=== PATIENT | female | born 1950 | race Caucasian/White ===

== ENCOUNTER 2017-12-17 19:32 | Emergency (ER) | payer MEDICARE, BC ==
[2017-12-17 20:05] VITALS: BP 150/92
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
== END 2017-12-17 20:36 | disposition home or self-care (01) ==
LOC: JP.ED 19:32
DX: S80.862A Insect bite (nonvenomous), left lower leg, initial encounter (principal); Z88.6 Allergy status to analgesic agent; Z88.5 Allergy status to narcotic agent; Z79.82 Long term (current) use of aspirin; Z79.899 Other long term (current) drug therapy; W57.XXXA Bitten or stung by nonvenomous insect and other nonvenomous arthropods, initial encounter
CPT/HCPCS: 99282

== ENCOUNTER 2018-01-03 06:26 | Day surgery (SDC) | payer MEDICARE, BC ==
[2018-01-03] MEDS ORDERED: Sodium Chloride 0.9% 1,000 ML IV SCH (06:30)
[2018-01-03] MEDS ORDERED: Sodium Tetradecyl Sulfate 1% 20 MG/2 ML SDV ONE (06:46)
[2018-01-03] MEDS ORDERED: Lidocaine 1% with EPINEPHrine 1:100,000 50 ML MDV ONE (06:47)
[2018-01-03] MEDS ORDERED: Sodium Chloride 0.9% 10 ML ONE (06:47)
[2018-01-03] MEDS ORDERED: Propofol 200 MG/20 ML SDV ONE ×2 (07:25→08:02)
[2018-01-03] MEDS ORDERED: Midazolam 1 MG/ML 2 ML SDV ONE (07:25)
[2018-01-03] MEDS ORDERED: fentaNYL 100 MCG/2 ML SDV ONE (07:25)
[2018-01-03] MEDS: Lidocaine 1% w/EPINEPHrine 50 ML, Sodium Bicarbonate 5 MEQ in Sodium Chloride 0.9% 950 ML INJECT SCH ×2 (08:00→08:30)
[2018-01-03] MEDS ORDERED: Ondansetron 4 MG/2 ML SDV ONE (08:27)
[2018-01-03 09:55] VITALS: BP 150/77
--- NOTE | 2018-01-03 11:28 | OR ---
DATE OF PROCEDURE: 01/03/2018 PROCEDURES: 1. Radiofrequency ablation of left greater saphenous vein. 2. Radiofrequency ablation of right greater saphenous vein. 3. Sclerotherapy, left leg, multiple. 4. Sclerotherapy, right leg, multiple. 5. Compression wrapping, left leg, 20 mmHg gradient pressure ([id number]). 6. Compression wrapping, right leg, 20 mm gradient ([id number]). COMPLICATIONS: None. LONG WINDER TENDER: None. PREOPERATIVE DIAGNOSIS: Venous insufficiency with inflammation and pain. POSTOPERATIVE DIAGNOSIS: Venous insufficiency with inflammation and pain. RISKS: Risks, benefits, alternatives, and limitations including, but not limited to infection, bleeding, and DVT formation were explained to the patient, who wished to proceed. PROCEDURE IN DETAIL: The patient was placed in supine position. The left GSV was accessed at the level of the ankle. This was accessed using a 21-gauge needle, exchanged for a 35,000th wire and a 7-Portuguese sheath, anesthetized by lidocaine 1%. The RFA probe was then advanced to 3 cm from the saphenofemoral junction. Tumescent fluid was injected in a 1-cm jacket around this and verified a second and a third time. Direct even pressure was held as the probe was deployed x2 proximally and distally, and x1 in all other segments. The sheath and device were then removed and direct pressure was held for 10 minutes and Dermabond was applied. The right leg was then performed in the same manner, same fashion, same technique, in the same sequence, and using the same equipment. This was also verified a second and a third time. Sclerotherapy was then performed on left and right legs using 0.33% sodium tetradecyl. This was always drawn back to ensure intravascular injection only and no more than 2 mL was injected in one location, 6 on the left and 9 on the right. Two-layer two-stage compression wrapping was then performed on the [id number]-yt-esivqrpm gradient with 20 mmHg pressure in a ojjrgk-mi-kiypa fashion x2. The patient tolerated the procedure well. Tez Rivers MD /[id number]
== END 2018-01-03 10:10 | disposition home or self-care (01) ==
LOC: JP.SDS 06:26
PROVIDERS: ATTEND Surgery
DX: I87.2 Venous insufficiency (chronic) (peripheral) (principal); I83.813 Varicose veins of bilateral lower extremities with pain; I10 Essential (primary) hypertension; Z88.5 Allergy status to narcotic agent; Z88.6 Allergy status to analgesic agent
CPT/HCPCS: 36471; 36475; J1642; J2250; J2405; J2704; J3010; J7030; J7050; J3490

== ENCOUNTER 2019-02-23 10:19 | Emergency (ER) | payer BC, MEDICARE ==
[2019-02-23 10:49] VITALS: BP 154/72; PULSE 100
[2019-02-23] MEDS ORDERED: methylPREDNISolone Sodium Succinate 125 MG/2 ML SDV IM ONE (11:06)
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
== END 2019-02-23 11:20 | disposition home or self-care (01) ==
LOC: JP.ED 10:19
DX: S00.86XA Insect bite (nonvenomous) of other part of head, initial encounter (principal); I10 Essential (primary) hypertension; E03.9 Hypothyroidism, unspecified; Z86.718 Personal history of other venous thrombosis and embolism; Z79.01 Long term (current) use of anticoagulants; Z88.5 Allergy status to narcotic agent; Z88.6 Allergy status to analgesic agent; Z79.82 Long term (current) use of aspirin; Z79.890 Hormone replacement therapy; Z79.899 Other long term (current) drug therapy; W57.XXXA Bitten or stung by nonvenomous insect and other nonvenomous arthropods, initial encounter
CPT/HCPCS: 96372; 99282; J2930

== ENCOUNTER 2021-05-20 07:27 | Day surgery (SDC) | payer MEDICARE ==
[~2021-05-20 07:27] MED LIST: Sodium Chloride 0.9% 0 ML ONE
[2021-05-20] MEDS ORDERED: Propofol 200 MG/20 ML SDV ONE (07:30)
[2021-05-20] MEDS ORDERED: Midazolam 1 MG/ML 2 ML SDV ONE (07:30)
[2021-05-20] MEDS ORDERED: fentaNYL 100 MCG/2 ML SDV ONE (07:30)
[2021-05-20] MEDS: Sodium Chloride 0.9% 1,000 ML IV SCH (08:11)
[2021-05-20] MEDS: Lidocaine 1% with EPINEPHrine 1:100,000 50 ML MDV ONE (10:35)
[2021-05-20] MEDS: Lidocaine 1% w/EPINEPHrine 50 ML, Sodium Bicarbonate 5 MEQ in Sodium Chloride 0.9% 950 ML INJECT SCH (10:38)
[2021-05-20 11:34] VITALS: BP 133/92; PULSE 72
--- NOTE | 2021-05-22 10:22 | OR ---
DATE OF PROCEDURE: 05/20/2021 SURGEON: Tez Rivers MD PROCEDURE PERFORMED: Radiofrequency ablation of left greater saphenous vein. COMPLICATIONS: None. TRIM AND BURR OPERATOR: None. ANESTHESIA: MAC. RISKS: Risks, benefits, alternatives, and limitations including, but not limited to infection, bleeding, DVT formation, and other risks not listed here were explained to the patient. They wished to proceed. PROCEDURE IN DETAIL: The patient was placed in the supine position. Left GSV was accessed at approximately level of the ankle. This was accessed using a 21-gauge needle, then exchanged for a 35,000th wire. This was anesthetized with 1% lidocaine. The 7-Arabic sheath was introduced. RFA probe was then introduced and advanced to greater than 5 cm into the saphenofemoral junction. Tumescent fluid was injected in a 1 cm jacket around this, verified a second and third time. Direct even pressure was held. Probe was deployed x2 proximally and distally and x1 in all other segments. The sheath and device were then removed. Direct pressure was held for 10 minutes.. Dermabond was applied. The patient tolerated the procedure well. Tez Rivers MD /[id number]
== END 2021-05-20 11:35 | disposition home or self-care (01) ==
LOC: JP.SDS 07:27
PROVIDERS: ATTEND Surgery
DX: I87.2 Venous insufficiency (chronic) (peripheral) (principal); I10 Essential (primary) hypertension; E03.9 Hypothyroidism, unspecified; Z88.5 Allergy status to narcotic agent
CPT/HCPCS: 36475; J1642; J2250; J2704; J3010; J7030; J3490

== ENCOUNTER 2022-01-19 08:36 | Emergency (ER) | payer MEDICARE ==
[2022-01-19 08:47] VITALS: BP 167/86; PULSE 73
[2022-01-19 10:07] LABS: CORONAVIRUS COVID-19 NAA POSITIVE (NEGATIVE)
== END 2022-01-19 10:23 | disposition home or self-care (01) ==
LOC: JP.ED 08:36
DX: U07.1 COVID-19 (principal); I10 Essential (primary) hypertension; E03.9 Hypothyroidism, unspecified; Z88.5 Allergy status to narcotic agent; Z88.8 Allergy status to other drugs, medicaments and biological substances; Z79.82 Long term (current) use of aspirin; Z79.899 Other long term (current) drug therapy
CPT/HCPCS: 0241U; 99283

== ENCOUNTER 2023-01-20 14:48 | Emergency (ER) | payer OTHER, MEDICARE ==
[2023-01-20] MEDS ORDERED: Bacitracin Oint 1 GM U/D Packet TOP ONE (15:39)
[2023-01-20] MEDS ORDERED: Lidocaine 1% 5 ML VIAL INJECT ONE (15:39)
[2023-01-20 16:46] VITALS: BP 170/82; PULSE 94
== END 2023-01-20 16:22 | disposition home or self-care (01) ==
LOC: JP.ED 14:48
DX: S01.81XA Laceration without foreign body of other part of head, initial encounter (principal); E03.9 Hypothyroidism, unspecified; Z88.5 Allergy status to narcotic agent; Z88.8 Allergy status to other drugs, medicaments and biological substances; Z79.82 Long term (current) use of aspirin; Z79.899 Other long term (current) drug therapy; Z79.01 Long term (current) use of anticoagulants; Z86.718 Personal history of other venous thrombosis and embolism; W22.8XXA Striking against or struck by other objects, initial encounter; Y92.009 Unspecified place in unspecified non-institutional (private) residence as the place of occurrence of the external cause
CPT/HCPCS: 12013; 99282

== ENCOUNTER 2023-07-26 12:25 | Emergency (ER) | payer MEDICARE ==
[2023-07-26 12:31] VITALS: BP 196/91; PULSE 85
[2023-07-26] MEDS ORDERED: Cyclobenzaprine 10 MG Tab PO ONE (13:11)
[2023-07-26] MEDS ORDERED: Ketorolac 30 MG/ML SDV IM ONE (13:11)
== END 2023-07-26 14:26 | disposition home or self-care (01) ==
LOC: JP.ED 12:25
DX: M53.87 Other specified dorsopathies, lumbosacral region (principal); G89.29 Other chronic pain; I10 Essential (primary) hypertension; E03.9 Hypothyroidism, unspecified; Z90.49 Acquired absence of other specified parts of digestive tract; Z90.710 Acquired absence of both cervix and uterus; Z79.01 Long term (current) use of anticoagulants; Z79.82 Long term (current) use of aspirin; Z79.899 Other long term (current) drug therapy; Z88.5 Allergy status to narcotic agent; Z88.6 Allergy status to analgesic agent; Z88.8 Allergy status to other drugs, medicaments and biological substances
CPT/HCPCS: 72202; 96372; 99283; A9270; J1885

== ENCOUNTER 2023-08-03 09:26 | Emergency (ER) | payer MEDICARE ==
[2023-08-03 09:33] VITALS: BP 138/76; PULSE 83
[2023-08-03] MEDS ORDERED: HYDROmorphone 0.5 MG/0.5 ML Syringe IVPUSH PRN (10:24)
[2023-08-03 10:37] LABS: BASOPHILS ABSOLUTE AUTO 0.05 K/uL (0.00-0.10); EOSINOPHILS ABSOLUTE AUTO 0.19 K/uL (0.00-0.40); EOSINOPHILS PERCENT AUTO 3.7 % (0.0-5.4); HEMATOCRIT 39.9 % (34.3-46.0); HEMOGLOBIN 13.8 g/dL (11.2-15.5); IMMATURE GRAN PERCENT AUTO 0.2 % (0.0-0.7); LYMPHOCYTES ABSOLUTE AUTO 1.21 K/uL (0.8-3.3); LYMPHOCYTES PERCENT AUTO 23.4 % (11.4-47.7); MEAN CORPUSCULAR HEMOGLOBIN 31.4 pg (31.6-35.5); MEAN CORPUSCULAR HGB CONC 34.6 g/dL (31.6-35.5); MEAN CORPUSCULAR VOLUME 90.9 fL (81.4-99.0); MONOCYTES ABSOLUTE AUTO 0.38 K/uL (0.20-0.90); MONOCYTES PERCENT AUTO 7.3 % (3.3-12.6); NEUTROPHILS ABSOLUTE AUTO 3.34 K/uL (1.0-7.6); NEUTROPHILS PERCENT AUTO 64.4 % (40.0-78.1); PLATELET COUNT,PLT 220 K/uL (130-375); RED BLOOD CELL COUNT 4.39 M/uL (3.77-5.24); WHITE BLOOD CELL COUNT,WBC 5.2 K/uL (3.2-11.0)
[2023-08-03 10:41] LABS: IMMATURE GRAN ABSOLUTE AUTO 0.01 K/uL (0.00-0.23)
[2023-08-03 10:54] LABS: BLOOD UREA NITROGEN,BUN 14 mg/dL (7-18); CALCIUM 9.2 mg/dL (8.5-10.1); CARBON DIOXIDE,CO2 26 mmol/L (21-32); CHLORIDE,CL 104 mmol/L (100-108); CREATININE 0.8 mg/dL (0.6-1.0); EST CRCL DRUG DOSING (CG) 67.91 mL/min; ESTIMATED GFR 77 mL/min (>60); GLUCOSE RANDOM 92 mg/dL (74-106); POTASSIUM,K 4.1 mmol/L (3.6-5.2); SODIUM,NA 139 mmol/L (140-148)
[2023-08-03 10:55] LABS: ANION GAP 13.1 mmol/L (5.0-14.0); C-REACTIVE PROTEIN < 0.50 mg/dL (<0.50)
== END 2023-08-03 12:43 | disposition home or self-care (01) ==
LOC: JP.ED 09:26
DX: M24.151 Other articular cartilage disorders, right hip (principal); I10 Essential (primary) hypertension; Z79.82 Long term (current) use of aspirin; Z88.5 Allergy status to narcotic agent
CPT/HCPCS: 36415; 73700; 76377; 80048; 85025; 86140; 96374; 99284; J1170

== ENCOUNTER 2023-08-17 09:09 | Emergency (ER) | payer MEDICARE ==
[2023-08-17] MEDS ORDERED: Ondansetron 4 MG Tab.DIS PO ONE (09:21)
[2023-08-17] MEDS ORDERED: HYDROmorphone 1 MG/ML Syringe IM ONE (09:39)
[2023-08-17 11:14] VITALS: BP 121/46; PULSE 74
== END 2023-08-17 11:05 | disposition home or self-care (01) ==
LOC: JP.ED 09:09
DX: M54.41 Lumbago with sciatica, right side (principal); M54.31 Sciatica, right side; I10 Essential (primary) hypertension; E03.9 Hypothyroidism, unspecified; Z79.82 Long term (current) use of aspirin; Z88.5 Allergy status to narcotic agent; Z88.6 Allergy status to analgesic agent
CPT/HCPCS: 96372; 99283; J1170; Q0162

== ENCOUNTER 2023-12-31 20:44 | Emergency (ER) | payer MEDICARE ==
[2023-12-31 21:22] VITALS: BP 145/72; PULSE 68
== END 2023-12-31 23:52 | disposition home or self-care (01) ==
LOC: JP.ED 20:44
DX: M79.89 Other specified soft tissue disorders (principal); I10 Essential (primary) hypertension; E03.9 Hypothyroidism, unspecified; Z88.6 Allergy status to analgesic agent; Z88.5 Allergy status to narcotic agent; Z79.82 Long term (current) use of aspirin; Z79.890 Hormone replacement therapy
CPT/HCPCS: 36415; 85379; 93971-LT; 99284

== ENCOUNTER 2024-09-20 12:16 | Emergency (ER) | payer MEDICARE ==
[2024-09-20 12:31] VITALS: BP 175/98; PULSE 91
[2024-09-20 13:16] LABS: BASOPHILS ABSOLUTE AUTO 0.04 K/uL (0.00-0.10); BASOPHILS PERCENT AUTO 0.9 % (0.1-1.3); EOSINOPHILS ABSOLUTE AUTO 0.08 K/uL (0.00-0.40); EOSINOPHILS PERCENT AUTO 1.8 % (0.0-5.4); HEMATOCRIT 39.5 % (34.3-46.0); HEMOGLOBIN 13.8 g/dL (11.2-15.5); IMMATURE GRAN PERCENT AUTO 0.2 % (0.0-0.7); LYMPHOCYTES ABSOLUTE AUTO 1.28 K/uL (0.8-3.3); LYMPHOCYTES PERCENT AUTO 28.3 % (11.4-47.7); MEAN CORPUSCULAR HGB CONC 34.9 g/dL (31.6-35.5); MEAN CORPUSCULAR VOLUME 91.6 fL (81.4-99.0); MONOCYTES ABSOLUTE AUTO 0.42 K/uL (0.20-0.90); MONOCYTES PERCENT AUTO 9.3 % (3.3-12.6); NEUTROPHILS ABSOLUTE AUTO 2.69 K/uL (1.0-7.6); NEUTROPHILS PERCENT AUTO 59.5 % (40.0-78.1); PLATELET COUNT,PLT 232 K/uL (130-375); RED BLOOD CELL COUNT 4.31 M/uL (3.77-5.24); WHITE BLOOD CELL COUNT,WBC 4.5 K/uL (3.2-11.0)
[2024-09-20 13:18] LABS: IMMATURE GRAN ABSOLUTE AUTO 0.01 K/uL (0.00-0.23)
[2024-09-20 13:37] LABS: A/G RATIO 1.3 (1.2-2.2); ALANINE AMINOTRANSFERASE,ALT 22 U/L (12-78); ALBUMIN 4.1 g/dL (3.4-5.0); ALKALINE PHOSPHATASE 68 U/L (46-116); ASPARTATE AMNIOTRANSFERASE,AST 17 U/L (15-37); BILIRUBIN TOTAL 0.6 mg/dL (0.2-1.0); BLOOD UREA NITROGEN,BUN 16 mg/dL (7-18); CALCIUM 9.9 mg/dL (8.5-10.1); CARBON DIOXIDE,CO2 26 mmol/L (21-32); CHLORIDE,CL 104 mmol/L (100-108); CREATININE 0.9 mg/dL (0.6-1.0); EST CRCL DRUG DOSING (CG) 59.44 mL/min; ESTIMATED GFR 66 mL/min (>60); GLUCOSE RANDOM 93 mg/dL (74-106); PROTEIN TOTAL,TP 7.2 g/dL (6.4-8.2); SODIUM,NA 138 mmol/L (140-148)
[2024-09-20] MEDS: Ketorolac 15 MG/ML SDV IVPUSH ONE (13:47)
[2024-09-20] MEDS: Sodium Chloride 0.9% 1,000 ML IV ONE (13:47)
[2024-09-20] MEDS: traMADol 50 MG Tab PO ONE (13:48)
== END 2024-09-20 15:00 | disposition home or self-care (01) ==
LOC: JP.ED 12:16
DX: M62.838 Other muscle spasm (principal); I10 Essential (primary) hypertension; E03.9 Hypothyroidism, unspecified; Z90.49 Acquired absence of other specified parts of digestive tract; Z79.890 Hormone replacement therapy; Z79.82 Long term (current) use of aspirin; Z79.1 Long term (current) use of non-steroidal anti-inflammatories (NSAID); Z88.6 Allergy status to analgesic agent; Z88.5 Allergy status to narcotic agent
CPT/HCPCS: 36415; 70450; 72125; 76377; 80053; 85025; 96361; 96374; 96375; 99284; A9270; J1885; J3360

== ENCOUNTER 2025-01-18 09:40 | Emergency (ER) | payer MEDICARE ==
[2025-01-18 10:05] VITALS: BP 141/81; PULSE 77
== END 2025-01-18 10:27 | disposition home or self-care (01) ==
LOC: JP.ED 09:40
DX: U07.1 COVID-19 (principal); I10 Essential (primary) hypertension; Z88.8 Allergy status to other drugs, medicaments and biological substances; Z88.5 Allergy status to narcotic agent; Z79.82 Long term (current) use of aspirin; Z79.890 Hormone replacement therapy
CPT/HCPCS: 99283